=== PATIENT | female | born 1975 | race Caucasian/White ===

== ENCOUNTER 2016-12-31 13:31 | Emergency (ER) | payer SELFPAY ==
[~2016-12-31] VITALS: Ht 180.3 cm; Wt 75.0 kg
[~2016-12-31 13:31] MED LIST: METH10TA PO
[2016-12-31 13:33] VITALS: BP 153/89; PULSE 87; RESP 18; TEMP 98.8; O2SAT 98
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
== END 2016-12-31 14:10 | disposition home or self-care (01) ==
LOC: NEPK 13:31
DX: S09.90XA Unspecified injury of head, initial encounter (principal); Y08.89XA Assault by other specified means, initial encounter; Y93.89 Activity, other specified
CPT/HCPCS: 99282